=== PATIENT | female | born 1945 | race Caucasian/White ===

== ENCOUNTER 2016-07-09 12:28 | Outpatient (CLI) ==
[2013-02-26 10:03] VITALS: BMI 30.9
--- NOTE | 2016-07-09 13:02 | DI ---
EXAM: CHEST FRONTAL AND LATERAL VIEWS HISTORY: Cough. COMPARISON: 03/22/2009 FINDINGS: Heart size and mediastinal contour remain within normal limits. A mild aortic ectasia. No acute infiltrates are seen. There is no consolidation, visible pleural fluid or pneumothorax. Ramiro eryn reveal no acute fracture. IMPRESSION: No acute cardiopulmonary process.
== END 2016-07-09 12:29 | disposition home or self-care (01) ==
LOC: RAD 12:28
PROVIDERS: ATTEND Internal Medicine
DX: R05 Cough (principal); R50.9 Fever, unspecified

== ENCOUNTER 2017-08-30 11:00 | Outpatient (RCR) ==
[2013-02-26 10:03] VITALS: BMI 30.9
--- NOTE | 2017-08-16 09:55 | RS.OPPTEV2 ---
Date of Note: 08/13/17 Visit #: 1 Date of Evaluation: 08/13/17 Payer Source: MEDICARE Surgery Performed?: Yes (posterior tibial tendon tenosynovectomy and repair) Date of Procedure: 06/04/17 Treatment Diagnosis: R ankle pain, decreased ROM s/p post tibial tendon repair History of Condition/Mechanism of Injury:: pt states she injured R ankle 4 months ago, twisted ankle Prior Level of Function.....Patient was independent with: ADL's, Self Care, Work /Vocation, Ambulation/Mobility, Community Integration/Access Functional Limitations: Standing, Squatting, Ambulation, Community Access/ Integration Current Subjective/complaints:: pt states she is continuing to have significant pain in R ankle. 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 Treatment Side (optional): Right *Precautions: s/p posterior tibial tendon tenosynovectomy and repair 06/04/17 Medical History Medical History: Unremarkable Surgical History: Lumbar Spine Surgical History Comments:: current surgery to R ankle Smoking Status: Former smoker Hx Home Medications: lorazepam, estradiol, zetia Patient's Goals: decrease pain in R ankle and return to normal activities Pain Assessment - Pain Description Pain Location: R ankle Pain Description: Sharp, Aching Current Pain Intensity: 5/10 Functional Outcome Measure LE Functional Scale: 28 (65%) - G Codes & Severity Modifier G Codes & Modifier: mobility current CL. mobility goal CI Source of G Code score: LE functional index Observation - Observation Inspection: non pitting edema R ankle/foot Posture: Forward Head, Rounded Shoulders Handedness: Right Girth Measurement Lower: L LE ankle 25 cm RLE ankle 35cm. forefoot 21 cm forefoot 22 cm Gait - Gait Pattern General Gait Pattern Observation: Antalgic Gait, Decrease Stride Lngth (R) Gait Comments: pt amb with antalgic gait with decrease stance time on R LE, pt also with increased pronation on R foot. General Range of Motion: BUE WFL's. LLE WFL's. RLE except ankle WFL's Ankle ROM: Left WFL's Ankle Muscle Strength: Left WFL's - Left Ankle ROM Left DF with Knee extension: 8 Left Plantar Flexion: 70 Left Eversion: 30 Left Inversion: 28 - Right Ankle ROM Right DF with Knee extension: 5 Right Plantarflexion: 30 Right Eversion: 9 (with pain) Right Inversion: 12 (with pain) - Right Ankle Strength Right Dorsiflexion: 3- Fair- Right Plantarflexion: 3- Fair- Right Eversion: 3- Fair- Right Inversion: 3- Fair- Palpation Palpation Findings: Tenderness (pt with increased tenderness distal to medial malleolus) Sensation - Sensation Right Upper Extremity: Intact/Normal Left Upper Extremity: Intact/Normal Right Lower Extremity: Impaired (slight n/t r foot) Left Lower Extremity: Intact/Normal Balance - Sitting Balance Static Sitting Balance: Normal Dynamic Sitting Balance: Normal - Standing Balance Static Standing Balance: Good Dynamic Standing Balance: Fair - Comments Balance Assessment Comments: pt with antalgic gait, decreased stance time on R causing decreased dyn stand balance - Heat/Cryotherapy Treatment: Cryotherapy Comments:: R ankle Interventions - Exercise/Activities/Manual Therapy Exercises/Activities: pt performed isometric DF, PF , IV, EV. gentle heel cord stretching Manual Therapy: n/a HOME EXERCISE PROGRAM: pt given written HEP including: isometric DF, PF , IV, EV ankle alphabet, towel curls, gentle heel cord stretching - Charges Timed Code Treatment Minutes: 50 Total Treatment Time: 58 Procedures billed for this date of service:: eval low, CP EVALUATION COMPLEXITY LEVEL EVALUATION COMPLEXITY LEVEL: HISTORY: Low (R ankle sx), EXAM OF BODY SYSTEMS: Medium (pain, ROM, Strength, balance, edema), CLINICAL PRESENTATION: Low (stable ), CLINICAL DECISION MAKING: Low Assessment Assessment: pt presents with edema R ankle, decreased ROM, strength, as well as pain R ankle s/p sx on 06/04/17. pt with difficulty with ambulation due to pain and decreased ROM, strength limiting her abilities to perform normal daily activities. 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 Goal #1: pt rate pain <2 with activity Goal to be met by: 09/24/17 Goal #2: Improve R ankle ROM WFL's Goal to be met by: 09/24/17 Goal #3: pt report ability to stand and perform work duties with decrease pain Goal to be met by: 09/24/17 Goal #4: pt independent with HEP and increase strength R ankle 4 to 4+/5 Goal to be met by: 09/24/17 Plan - Treatment to be Provided Procedures: Therapeutic Exercises, Therapeutic Activity, Gait Training, Neuromuscular Rehab, Manual Therapy, Massage, Patient Education Modalities: Electrical Stimulation, Ultrasound/Phonophoresis, Class IV Laser, Cryotherapy, Hot Packs - Treatment Plan Frequency: 2-3x a week Duration: 6 weeks ORDER # VISITS AND/OR THROUGH DATE: 09/24/17 - Treatment Code (1) Right ankle pain Code(s): M25.571 - PAIN IN RIGHT ANKLE AND JOINTS OF RIGHT FOOT Qualifiers: Chronicity: chronic Qualified Code(s): M25.571 - Pain in right ankle and joints of right foot; G89.29 - Other chronic pain; G89.29 - Other chronic pain (2) Joint effusion Code(s): M25.40 - EFFUSION, UNSPECIFIED JOINT (3) Muscle weakness Code(s): M62.81 - MUSCLE WEAKNESS (GENERALIZED) (4) Difficulty walking Code(s): R26.2 - DIFFICULTY IN WALKING, NOT ELSEWHERE CLASSIFIED (5) Other specified postprocedural states Code(s): Z98.89 - OTHER SPECIFIED POSTPROCEDURAL STATES * DO NOT USE * Comments: s/p R posterior tibial tendon tenosynovectomy and repair 06/04/17
--- NOTE | 2017-08-16 16:31 | RS.OPPTDN ---
Subjective Date of Note: 08/16/17 Visit #: 2 Date of Evaluation: 08/13/17 Payer Source: MEDICARE Treatment Diagnosis: R ankle pain, decreased ROM s/p post tibial tendon repair Current Subjective/complaints:: Patient says her ankle seems to be getting better. Reports that she has tenderness to the inside of her ankle along the incision and remains with some swelling. He reports that she is using ice at home and is able to alter her work schedule to the load in which she can tolerate. *Precautions: s/p posterior tibial tendon tenosynovectomy and repair 06/04/17 Pain Assessment - Pain Description Pain Location: 08/10 avg. No pain meds due to side effects. - Heat/Cryotherapy Treatment: Hot Pack (15 mins to the R ankle/foot in supine) Interventions - Exercise/Activities/Manual Therapy Exercises/Activities: Patient receives PROM and gentle stretching of R heel cords and all dir of the R foot. Began manual isometrics all directions also 2x5. Yellow tband IV/EV/PF/DF 2x10. Wobble board for PF/DF at EOB multiple reps. Began patient ed on diagnosis and safety with body mechanics/work duties. Total minutes of Exercise: 23 Manual Therapy: n/a HOME EXERCISE PROGRAM: pt given written HEP including: isometric DF, PF , IV, EV ankle alphabet, towel curls, gentle heel cord stretching - Charges Timed Code Treatment Minutes: 23 Total Treatment Time: 48 Procedures billed for this date of service:: hp, ex2 Assessment: Patient appears to be russell all therex well and is compliant with HEP and is using cryotherapy at home for reducing swelling. Patient motivated to gain ROM and strength to return to work duties more consistently. Patient Education: Home Exercise Program, Home Safety, Education of Plan of Care Patient demonstrates compliance with HEP?: Yes Short Term Goals Goal #1: pt report pain <4 with activity Goal to be met by: 09/03/17 Goal #2: Increased ROM R ankle DF 15, PF 40 IV 20 eversion 15 Goal to be met by: 09/03/17 Goal #3: Decrease edema R ankle to equal to L ankle Goal to be met by: 09/03/17 Goal #4: pt with increased strength R ankle 3+ to 4-/5 Goal to be met by: 09/03/17 Group Home Goals Goal #1: pt rate pain <2 with activity Goal to be met by: 09/24/17 Goal #2: Improve R ankle ROM WFL's Goal to be met by: 09/24/17 Goal #3: pt report ability to stand and perform work duties with decrease pain Goal to be met by: 09/24/17 Goal #4: pt independent with HEP and increase strength R ankle 4 to 4+/5 Goal to be met by: 09/24/17 Plan PLAN OF CARE EXPIRES ON:: 09/24/17 ORDER # VISITS AND/OR THROUGH DATE: 09/24/17 PLAN: Patient to continue TIW
--- NOTE | 2017-08-18 13:47 | RS.OPPTDN ---
Subjective Date of Note: 08/18/17 Visit #: 3 Date of Evaluation: 08/13/17 Payer Source: MEDICARE Treatment Diagnosis: R ankle pain, decreased ROM s/p post tibial tendon repair Current Subjective/complaints:: Patient says her pain and foot are getting better. She says she continues to work on HEP. *Precautions: s/p posterior tibial tendon tenosynovectomy and repair 06/04/17 - Heat/Cryotherapy Treatment: Hot Pack (15 mins around the R foot/ankle in supine) Interventions - Exercise/Activities/Manual Therapy Exercises/Activities: Patient receives PROM and gentle stretching of R heel cords and all dir of the R foot. Continued with manual isometrics all directions also 2x5. Progressed to red tband IV/EV/PF/DF 2x10. Wobble board for PF/DF at EOB multiple reps. Gave yellow and red tbands for HEP. Total minutes of Exercise: 25 Manual Therapy: n/a HOME EXERCISE PROGRAM: pt given written HEP including: isometric DF, PF , IV, EV ankle alphabet, towel curls, gentle heel cord stretching - Charges Timed Code Treatment Minutes: 25 Total Treatment Time: 40 Procedures billed for this date of service:: hp, ex2 Assessment: Patient experiencing less pain and tenderness with mild palpation to the R medial ankle and lower leg. She is able to russell progressive therex today with tbands. Patient instructed on these for home. Patient Education: Home Exercise Program Patient demonstrates compliance with HEP?: Yes Short Term Goals Goal #1: pt report pain <4 with activity Goal to be met by: 09/03/17 Progress towards Goal:: Progressing Goal #2: Increased ROM R ankle DF 15, PF 40 IV 20 eversion 15 Goal to be met by: 09/03/17 Progress towards Goal:: Progressing Goal #3: Decrease edema R ankle to equal to L ankle Goal to be met by: 09/03/17 Progress towards Goal:: Progressing Goal #4: pt with increased strength R ankle 3+ to 4-/5 Goal to be met by: 09/03/17 Custodial Goals Goal #1: pt rate pain <2 with activity Goal to be met by: 09/24/17 Goal #2: Improve R ankle ROM WFL's Goal to be met by: 09/24/17 Goal #3: pt report ability to stand and perform work duties with decrease pain Goal to be met by: 09/24/17 Goal #4: pt independent with HEP and increase strength R ankle 4 to 4+/5 Goal to be met by: 09/24/17 Plan PLAN OF CARE EXPIRES ON:: 09/24/17 ORDER # VISITS AND/OR THROUGH DATE: 09/24/17 PLAN: Continue BIW for progressive therex
--- NOTE | 2017-08-20 15:18 | RS.OPPTDN ---
Subjective Date of Note: 08/20/17 Visit #: 4 Date of Evaluation: 08/13/17 Payer Source: MEDICARE Treatment Diagnosis: R ankle pain, decreased ROM s/p post tibial tendon repair Current Subjective/complaints:: Patient says she "overdid it" at work yesterday. She says she was on her feet longer than she expected and does have increase in swelling as a result. She reports she did use ice when she got home. *Precautions: s/p posterior tibial tendon tenosynovectomy and repair 06/04/17 Pain Assessment - Pain Description Pain Location: R foot medially with elevated swelling - Treatment Modality: Electrical Stim Unattended Parameters/Method Applied: 4 small pads hivolt crossed at the R ankle @ 205-250 pk volts x 20 mins Patient Position: Supine - Heat/Cryotherapy Treatment: Cryotherapy Interventions - Exercise/Activities/Manual Therapy Exercises/Activities: Patient receives PROM and gentle stretching of R heel cords and all dir of the R foot. Continued with manual isometrics all directions also 2x5. Progressed to red tband IV/EV/PF/DF 2x10. Wobble board for PF/DF at EOB multiple reps. Planned to perform standing therex, but with patient's increased pain and prolonged standing yesterday, decided to begin that next week. Total minutes of Exercise: 22 Manual Therapy: n/a HOME EXERCISE PROGRAM: pt given written HEP including: isometric DF, PF , IV, EV ankle alphabet, towel curls, gentle heel cord stretching - Charges Timed Code Treatment Minutes: 22 Total Treatment Time: 42 Procedures billed for this date of service:: cp, estim (un), ex Assessment: Patient demo decreased pain and swelling following modalities today. She remains with difficulty with prolonged standing as in her job duties (7 hours yesterday). 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
--- NOTE | 2017-08-23 12:06 | RS.OPPTDN ---
Subjective Date of Note: 08/23/17 Date of Evaluation: 08/13/17 Payer Source: MEDICARE Treatment Diagnosis: R ankle pain, decreased ROM s/p post tibial tendon repair Current Subjective/complaints:: Patient says last treatment seemed to help improve her pain significantly. Reports foot swelling is better today, but also admits that she has not been up on it long. *Precautions: s/p posterior tibial tendon tenosynovectomy and repair 06/04/17 - Treatment Modality: Electrical Stim Unattended Parameters/Method Applied: cross current hivolt 4 small pads @ 235-275 pk volts x 20 mins surrounding the L foot. Patient Position: Supine - Heat/Cryotherapy Treatment: Cryotherapy Interventions - Exercise/Activities/Manual Therapy Exercises/Activities: Patient receives PROM and gentle stretching of R heel cords and all dir of the R foot. Continued with manual isometrics all directions also 2x5. Progressed to red tband IV/EV/PF/DF 2x10. Wobble board for PF/DF at EOB multiple reps. 2# SAQ 2x10. Sitting: bilateral IV with ball between ankles. Total minutes of Exercise: 20 Manual Therapy: n/a HOME EXERCISE PROGRAM: pt given written HEP including: isometric DF, PF , IV, EV ankle alphabet, towel curls, gentle heel cord stretching - Charges Timed Code Treatment Minutes: 20 Total Treatment Time: 40 Procedures billed for this date of service:: cp, estim (un), ex Assessment: Patient demo decreased swelling today, but also has not had prolonged WBing or standing today. Patient describing less pain and improved stability to the L ankle. Patient Education: Home Exercise Program, Activity Modification, Education of Plan of Care Patient demonstrates compliance with HEP?: Yes Short Term Goals Goal #1: pt report pain <4 with activity Goal to be met by: 09/03/17 Progress towards Goal:: Progressing Goal #2: Increased ROM R ankle DF 15, PF 40 IV 20 eversion 15 Goal to be met by: 09/03/17 Progress towards Goal:: Progressing Goal #3: Decrease edema R ankle to equal to L ankle Goal to be met by: 09/03/17 Progress towards Goal:: Progressing Goal #4: pt with increased strength R ankle 3+ to 4-/5 Goal to be met by: 09/03/17 Progress towards Goal:: 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 Patient to attend follow up tomorrow with MD.
--- NOTE | 2017-08-27 16:22 | RS.OPPTDN ---
Subjective Date of Note: 08/27/17 Visit #: 6 Date of Evaluation: 08/13/17 Payer Source: MEDICARE Treatment Diagnosis: R ankle pain, decreased ROM s/p post tibial tendon repair Current Subjective/complaints:: Patient says she has been up on her feet working today and this weekend. She says as a result, swelling is mildly more. *Precautions: s/p posterior tibial tendon tenosynovectomy and repair 06/04/17 - Treatment Modality: Electrical Stim Unattended Parameters/Method Applied: 4 small pads to the R ankle Hivolt @ 330-350 pk volts x 20 mins after therex Patient Position: Supine - Heat/Cryotherapy Treatment: Cryotherapy Interventions - Exercise/Activities/Manual Therapy Exercises/Activities: Patient receives PROM and stretching of R heel cords and all dir of the R foot. Continued with manual isometrics all directions also 2x10. Progressed to green tband IV/EV/PF/DF 2x10. Wobble board for PF/DF at EOB multiple reps. 2# SAQ 2x10. Sitting: bilateral IV with ball between ankles. No standing therex due to patient working today and yesterday as well as this weekend including prolonged standing, minisquats, and other exercises she utilizes while performing work duties. Total minutes of Exercise: 22 Manual Therapy: n/a HOME EXERCISE PROGRAM: pt given written HEP including: isometric DF, PF , IV, EV ankle alphabet, towel curls, gentle heel cord stretching - Charges Timed Code Treatment Minutes: 22 Total Treatment Time: 42 Procedures billed for this date of service:: cp, estim (un), ex Assessment: Patient does demo reduced swelling at the malleoli compared to the L by 4 cm, which is now only 6 cm instead of 10 cm difference (since eval). Forefoot is ~0.5 cm rather than 1 cm difference. She is able to maintain 2 days in a row working on her feet with swelling reduction, but still moderate pain though during and afterwards. Patient Education: Body/Joint mechanics, Home Exercise Program, Activity Modification, Education of Plan of Care Patient demonstrates compliance with HEP?: Yes Short Term Goals Goal #1: pt report pain <4 with activity Goal to be met by: 09/03/17 Progress towards Goal:: Progressing Goal #2: Increased ROM R ankle DF 15, PF 40 IV 20 eversion 15 Goal to be met by: 09/03/17 Progress towards Goal:: Progressing Goal #3: Decrease edema R ankle to equal to L ankle Goal to be met by: 09/03/17 Progress towards Goal:: Progressing Goal #4: pt with increased strength R ankle 3+ to 4-/5 Goal to be met by: 09/03/17 Progress towards Goal:: Progressing Regional Sales Manager Goals Goal #1: pt rate pain <2 with activity Goal to be met by: 09/24/17 Goal #2: Improve R ankle ROM WFL's Goal to be met by: 09/24/17 Goal #3: pt report ability to stand and perform work duties with decrease pain Goal to be met by: 09/24/17 Goal #4: pt independent with HEP and increase strength R ankle 4 to 4+/5 Goal to be met by: 09/24/17 Plan PLAN OF CARE EXPIRES ON:: 09/24/17 ORDER # VISITS AND/OR THROUGH DATE: 09/24/17 PLAN: Patient to continue BIW x 2 more weeks for strength, ROM, and edema control.
--- NOTE | 2017-08-30 13:25 | RS.OPPTDN ---
Subjective Date of Note: 08/30/17 Visit #: 8 Date of Evaluation: 08/13/17 Payer Source: MEDICARE Treatment Diagnosis: R ankle pain, decreased ROM s/p post tibial tendon repair Current Subjective/complaints:: Patient says she did have some increase in soreness from working over the weekend, but does not have any noticable increase in swelling compared to last week. *Precautions: s/p posterior tibial tendon tenosynovectomy and repair 06/04/17 Pain Assessment - Pain Description Pain Location: "low" - Treatment Modality: Electrical Stim Unattended Parameters/Method Applied: hivolt 4 small pads crossed @ 300-335 pk volts x 20 mins after supine therex Patient Position: Supine - Heat/Cryotherapy Treatment: Cryotherapy Interventions - Exercise/Activities/Manual Therapy Exercises/Activities: Patient receives PROM and stretching of R heel cords and all dir of the R foot. Continued with manual isometrics all directions also 2x10. Progressed to blue tband IV/EV/PF/DF 2x10. Wobble board for PF/DF at EOB multiple reps. 2# SAQ 2x10. Sitting: bilateral IV with ball between ankles. Standing at railing: green foam pad for weight shifting L to R, then A/ P, heel raises x 10. Large square foam for marching x 10 and minisquats x 5. Total minutes of Exercise: 35 Manual Therapy: n/a HOME EXERCISE PROGRAM: pt given written HEP including: isometric DF, PF , IV, EV ankle alphabet, towel curls, gentle heel cord stretching - Charges Timed Code Treatment Minutes: 35 Total Treatment Time: 55 Procedures billed for this date of service:: cp, estim (un), ex2 Assessment: Patient able to russell working full 3 days in a row without significant elevation in swelling. She maintains puffiness to the medial side of the R ankle, but is able to progress with strengthening and bal exercises today. She also presents with steadier gait when compared to first few visits. Patient Education: Body/Joint mechanics, Education of Plan of Care Patient demonstrates compliance with HEP?: Yes Short Term Goals Goal #1: pt report pain <4 with activity Goal to be met by: 09/03/17 Progress towards Goal:: Progressing Goal #2: Increased ROM R ankle DF 15, PF 40 IV 20 eversion 15 Goal to be met by: 09/03/17 Progress towards Goal:: Progressing Goal #3: Decrease edema R ankle to equal to L ankle Goal to be met by: 09/03/17 Progress towards Goal:: Progressing Goal #4: pt with increased strength R ankle 3+ to 4-/5 Goal to be met by: 09/03/17 Progress towards Goal:: Progressing Boats Renter Goals Goal #1: pt rate pain <2 with activity Goal to be met by: 09/24/17 Goal #2: Improve R ankle ROM WFL's Goal to be met by: 09/24/17 Goal #3: pt report ability to stand and perform work duties with decrease pain Goal to be met by: 09/24/17 Goal #4: pt independent with HEP and increase strength R ankle 4 to 4+/5 Goal to be met by: 09/24/17 Plan PLAN OF CARE EXPIRES ON:: 09/24/17 ORDER # VISITS AND/OR THROUGH DATE: 09/24/17 PLAN: Continue for mobility and strengthening to the R ankle progressing gait as well.
== END 2017-08-30 23:59 ==
PROVIDERS: ATTEND Podiatrist
DX: M25.571 Pain in right ankle and joints of right foot (principal); G89.29 Other chronic pain; M25.40 Effusion, unspecified joint; M62.81 Muscle weakness (generalized); R26.2 Difficulty in walking, not elsewhere classified; Z47.89 Encounter for other orthopedic aftercare; Z98.890 Other specified postprocedural states

== ENCOUNTER 2017-09-09 08:00 | Outpatient (RCR) ==
[2013-02-26 10:03] VITALS: BMI 30.9
--- NOTE | 2017-09-01 15:31 | RS.OPPTDN ---
Subjective Date of Note: 09/01/17 Visit #: 9 Date of Evaluation: 08/13/17 Payer Source: MEDICARE Treatment Diagnosis: R ankle pain, decreased ROM s/p post tibial tendon repair Current Subjective/complaints:: Patient says pain and swelling are staying down even while working 3 days per week. She says she does continue to elevate and ice. She reports she just needs to picker and packer her feet in order to walk better. *Precautions: s/p posterior tibial tendon tenosynovectomy and repair 06/04/17 - Treatment Modality: Electrical Stim Unattended Parameters/Method Applied: hivolt 4 small pads @ 380-455 pk volts x 20 mins prior to therex Treatment Area: surrounding the R ankle/incisional region Patient Position: Supine - Heat/Cryotherapy Treatment: Cryotherapy Interventions - Exercise/Activities/Manual Therapy Exercises/Activities: Patient receives PROM and stretching of R heel cords and all dir of the R foot. Continued with manual isometrics all directions also 2x10. Progressed to blue tband IV/EV/PF/DF 2x10. Wobble board for PF/DF at EOB multiple reps. 2# SAQ 2x10. Sitting: bilateral IV with ball between ankles. Standing at railing: green foam pad for weight shifting L to R, then A/ P, heel raises x 10. Large square foam for marching x 10 and minisquats x 5. Instruction on proper heel strike, but also agreed with patient and educated her on exaggerated R hip flexion to clear the R foot and prevent falls while we are also strengthening the Dflexors. Total minutes of Exercise: 34 Manual Therapy: n/a HOME EXERCISE PROGRAM: pt given written HEP including: isometric DF, PF , IV, EV ankle alphabet, towel curls, gentle heel cord stretching - Charges Timed Code Treatment Minutes: 34 Total Treatment Time: 54 Procedures billed for this date of service:: cp, estim (un), ex2 Patient Education: Body/Joint mechanics, Home Safety, Education of Plan of Care Patient demonstrates compliance with HEP?: Yes Short Term Goals Goal #1: pt report pain <4 with activity Goal to be met by: 09/03/17 Progress towards Goal:: Progressing Goal #2: Increased ROM R ankle DF 15, PF 40 IV 20 eversion 15 Goal to be met by: 09/03/17 Progress towards Goal:: Progressing Goal #3: Decrease edema R ankle to equal to L ankle Goal to be met by: 09/03/17 Progress towards Goal:: Progressing Goal #4: pt with increased strength R ankle 3+ to 4-/5 Goal to be met by: 09/03/17 Progress towards Goal:: Progressing Care Home Goals Goal #1: pt rate pain <2 with activity Goal to be met by: 09/24/17 Goal #2: Improve R ankle ROM WFL's Goal to be met by: 09/24/17 Goal #3: pt report ability to stand and perform work duties with decrease pain Goal to be met by: 09/24/17 Goal #4: pt independent with HEP and increase strength R ankle 4 to 4+/5 Goal to be met by: 09/24/17 Plan PLAN OF CARE EXPIRES ON:: 09/24/17 ORDER # VISITS AND/OR THROUGH DATE: 09/24/17 PLAN: Continue progressing therex and modalities to further improve swelling. Reassess next session
--- NOTE | 2017-09-02 11:53 | RS.OPPTDN ---
Subjective Date of Note: 09/02/17 Visit #: 9 Date of Evaluation: 08/13/17 Payer Source: MEDICARE Treatment Diagnosis: R ankle pain, decreased ROM s/p post tibial tendon repair Current Subjective/complaints:: Patient says she has to go into work for a few hours today. She says that she continues to work on standing exercises at home and tries to elevate and use cold at work and home. She admits being more conscientious about her gait and trying to walk more steadily. She admits improved strength and mobility to the R ankle this week. *Precautions: s/p posterior tibial tendon tenosynovectomy and repair 06/04/17 Pain Assessment - Pain Description Pain Location: only slight intermittently - Treatment Modality: Electrical Stim Unattended Parameters/Method Applied: hivolt 4 small pads crossed @ 500 pk volts x 20 mins to the R ankle Patient Position: Supine - Heat/Cryotherapy Treatment: Cryotherapy Interventions - Exercise/Activities/Manual Therapy Exercises/Activities: Patient receives PROM and stretching of R heel cords and all dir of the R foot. Continued with manual isometrics all directions also 2x10. Progressed to blue tband IV/EV/PF/DF 2x10. Wobble board for PF/DF at EOB multiple reps. 2# SAQ 2x10. Sitting: bilateral IV with ball between ankles. Measurements taken. Patient going to work once she leaves therapy and will be on her feet for a few hours so she will be performing various exercises that we would be normally working on. Total minutes of Exercise: 25 Manual Therapy: n/a HOME EXERCISE PROGRAM: pt given written HEP including: isometric DF, PF , IV, EV ankle alphabet, towel curls, gentle heel cord stretching - Charges Timed Code Treatment Minutes: 25 Total Treatment Time: 45 Procedures billed for this date of service:: cp, estim (un), ex2 Assessment: Patient demo improved ROM to: DF--12 degrees, PF--42 degrees, IV 16 degrees, EV-- 13 degrees. Girth measurements: malleoli--27.75 cm Patient Education: Education of diagnosis, Body/Joint mechanics, Home Exercise Program, Education of Plan of Care Patient demonstrates compliance with HEP?: Yes Short Term Goals Goal #1: pt report pain <4 with activity Goal to be met by: 09/03/17 Progress towards Goal:: Progressing Goal #2: Increased ROM R ankle DF 15, PF 40 IV 20 eversion 15 Goal to be met by: 09/03/17 Progress towards Goal:: Partially Met Goal #3: Decrease edema R ankle to equal to L ankle Goal to be met by: 09/03/17 Progress towards Goal:: Progressing Goal #4: pt with increased strength R ankle 3+ to 4-/5 Goal to be met by: 09/03/17 Progress towards Goal:: Met 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
--- NOTE | 2017-09-07 10:46 | RS.OPPTDN ---
Subjective Date of Note: 09/07/17 Visit #: 11 Date of Evaluation: 08/13/17 Payer Source: MEDICARE Treatment Diagnosis: R ankle pain, decreased ROM s/p post tibial tendon repair Current Subjective/complaints:: Patient says the only difficult task she has is ascending/descending stairs. She says swelling and pain is getting better. She says she is stronger and can tell it is getting easier to russell working 3-4 days per week. *Precautions: s/p posterior tibial tendon tenosynovectomy and repair 06/04/17 Pain Assessment - Pain Description Pain Location: tender at the R incisional area and with DF end range stretching Interventions - Exercise/Activities/Manual Therapy Exercises/Activities: Patient receives PROM and stretching of R heel cords and all dir of the R foot. Continued with manual isometrics all directions also 2x10. Progressed to blue tband IV/EV/PF/DF 2x10. Wobble board for PF/DF at EOB multiple reps. Increased to 3# SAQ, QS, SLR 1 05/04# 2x10. Sitting: bilateral IV with ball between ankles. Standing on foam: heel raises, minisquats x 10 without needing to hold on to railing. Forward step ups on board and side step ups x 10 reps with cues for sequencing multiple times. Deep step ups while using handles for forward step x 5. Total minutes of Exercise: 35 Manual Therapy: n/a HOME EXERCISE PROGRAM: pt given written HEP including: isometric DF, PF , IV, EV ankle alphabet, towel curls, gentle heel cord stretching - Charges Timed Code Treatment Minutes: 35 Total Treatment Time: 35 Procedures billed for this date of service:: ex2 Assessment: Patient demo decreased puffiness to the medial aspect of the R ankle along incision. She russell improved stretching today and resistance with manual isometrics. Patient Education: Body/Joint mechanics, Home Exercise Program, Education of Plan of Care Patient demonstrates compliance with HEP?: Yes Short Term Goals Goal #1: pt report pain <4 with activity Goal to be met by: 09/03/17 Progress towards Goal:: Progressing Goal #2: Increased ROM R ankle DF 15, PF 40 IV 20 eversion 15 Goal to be met by: 09/03/17 Progress towards Goal:: Partially Met Goal #3: Decrease edema R ankle to equal to L ankle Goal to be met by: 09/03/17 Progress towards Goal:: Progressing Goal #4: pt with increased strength R ankle 3+ to 4-/5 Goal to be met by: 09/03/17 Progress towards Goal:: Met 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
--- NOTE | 2017-09-07 13:41 | RS.PTSUM ---
Progress Note/Summary Date of Note: 09/07/17 Date of Evaluation: 08/13/17 Number of Visits: 10 Reporting Period for this Progress Note: 08/13/17-09/07/17 Current Complaints/Gains: pt reports that her pain/swelling are better. She is now working 3-4 days per week. pt states she does continue to have difficulty ascending/descending stairs. Objective Measurements/Presentation: pt with significant improvement with LE functional scale improved from 28/80 upon eval to 64/80 currently. R ankle ROM DF 12 PF 42, inversion 16, eversion, 13 which is improved from eval status DF 5 , PF 30 inversion 9 and eversion 12. Strength R LE ankle 4+/5 which is improved from 3-/5 upon eval. G Codes: mobility current CJ. mobility goal CI Source of G Code Score: LE functional scale - Short Term Goals Goal #1: pt report pain <4 with activity Goal to be met by: 09/03/17 Progress towards Goal:: Met Goal #2: Increased ROM R ankle DF 15, PF 40 IV 20 eversion 15 Goal to be met by: 09/03/17 Progress towards Goal:: Partially Met Goal #3: Decrease edema R ankle to equal to L ankle Goal to be met by: 09/03/17 Progress towards Goal:: Progressing Goal #4: pt with increased strength R ankle 3+ to 4-/5 Goal to be met by: 09/03/17 Progress towards Goal:: Met - [facility] Goals Goal #1: pt rate pain <2 with activity Goal to be met by: 09/24/17 Progress towards goal: Met Goal #2: Improve R ankle ROM WFL's Goal to be met by: 09/24/17 Progress towards goal: Progressing Goal #3: pt report ability to stand and perform work duties with decrease pain Goal to be met by: 09/24/17 Progress towards goal: Progressing Goal #4: pt independent with HEP and increase strength R ankle 4 to 4+/5 Goal to be met by: 09/24/17 Progress towards goal: Progressing - Assessment Assessment of Improvement/Progress: pt has made significant improvements with ROM, pain, gait, as well as strength. pt has met STG 1, 4 and LTG 1. pt is progressing well toward remaining goal. Anticipate dc after next visit. Summary: Patient has made progress towards goals., Patient demonstrates potential to gain increased function with therapy - Plan Plan: Continue Plan of Care Frequency: 2 X week Duration: 1 week PLAN OF CARE EXPIRES ON:: 09/24/17 ORDER # VISITS AND/OR THROUGH DATE: 09/24/17
--- NOTE | 2017-09-09 09:19 | RS.OPPTDN ---
Subjective Date of Note: 09/09/17 Visit #: 12 Date of Evaluation: 08/13/17 Payer Source: MEDICARE Treatment Diagnosis: R ankle pain, decreased ROM s/p post tibial tendon repair Current Subjective/complaints:: Patient says she still has days that she has no pain and swelling is down, but also other days it is flared up. Reports that prolonged standing and walking remain to be her most difficult task. She says she plans to walk near her [place] which [place] to gain endurance and strength. 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 *Precautions: s/p posterior tibial tendon tenosynovectomy and repair 06/04/17 Interventions - Exercise/Activities/Manual Therapy Exercises/Activities: Patient receives PROM and stretching of R heel cords and all dir of the R foot. Continued with manual isometrics all directions also 2x10. Progressed to blue tband IV/EV/PF/DF 2x15. Wobble board for PF/DF at EOB multiple reps. Increased to 3# SAQ, QS, SLR 1 1/2# 2x15. Supine: bilateral IV with ball between ankles. Standing on foam: heel raises, minisquats x 10 without needing to hold on to railing. Forward step ups on board and side step ups x 10 reps with cues for sequencing multiple times. Deep step ups while using handles for forward step 2 x 5. Total minutes of Exercise: 33 Manual Therapy: n/a HOME EXERCISE PROGRAM: pt given written HEP including: isometric DF, PF , IV, EV ankle alphabet, towel curls, gentle heel cord stretching - Charges Timed Code Treatment Minutes: 33 Total Treatment Time: 33 Procedures billed for this date of service:: ex2 Assessment: Patient demo consistent improvement with girth measurements in which surrounding the malleoli, swelling has decreased another 1.75 cm since her 10th visit, thus increasing ROM to meeting the STG mobility. Patient has completed POC at this point and will continue HEP progressing it independently and will begin walking routine outside of her home. Patient Education: Body/Joint mechanics, Home Exercise Program, Home Safety, Education of Plan of Care Patient demonstrates compliance with HEP?: Yes Short Term Goals Goal #1: pt report pain <4 with activity Goal to be met by: 09/03/17 Progress towards Goal:: Met Goal #2: Increased ROM R ankle DF 15, PF 40 IV 20 eversion 15 Goal to be met by: 09/03/17 Progress towards Goal:: Met Goal #3: Decrease edema R ankle to equal to L ankle Goal to be met by: 09/03/17 Progress towards Goal:: Partially Met Goal #4: pt with increased strength R ankle 3+ to 4-/5 Goal to be met by: 09/03/17 Progress towards Goal:: Met 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 D/c
--- NOTE | 2017-09-22 11:46 | RS.OPPTDC ---
Date of Discharge: 09/09/17 Date of Evaluation: 08/13/17 Number of Visits: 12 Treatment Diagnosis: R ankle pain, decreased ROM s/p post tibial tendon repair Current Level of Function: Strength RLE improved from 3-/5 on eval to 4+/5. pt amb with no LOB. pt able to stand longer to work 3-4 days per week. pt has partially met or met 6 of 8 goals and progressed with all others. Current Complaints/Gains: pt reports less pain to R ankle and improved strength. pt states it does not bother her much at work when working 3-4 days a week and is continuing to use ice and do HEP. Pain Assessment - Pain Description Pain Location: R ankle Current Pain Intensity: <2/10 Functional Outcome Measure LE Functional Scale: 64 - G Codes & Severity Modifier G Codes & Modifier: mobility dc CJ. mobility goal CI Source of G Code score: LE functional scale Observation - Observation Posture: Forward Head, Rounded Shoulders Gait - Gait Pattern General Gait Pattern Observation: Antalgic Gait Gait Comments: pt amb with antalgic gait, decreased step length. General Range of Motion: BUE WFL's. LLE WFL's. R ankle ROM improved. Muscle Strength: BUE 5/5. LLE 5/5. RLE 4+/5 Interventions - Exercise/Activities/Manual Therapy Exercises/Activities: n/a Manual Therapy: n/a HOME EXERCISE PROGRAM: pt given written HEP including: isometric DF, PF , IV, EV ankle alphabet, towel curls, gentle heel cord stretching - Charges Timed Code Treatment Minutes: n/a Total Treatment Time: n/a Procedures billed for this date of service:: n/a Assessment Assessment: pt progressed with strength, ROM and gait. Significant improvement and partially met/met 6 out of 8 goals progressing toward remaining goals. 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
== END 2017-09-30 23:59 ==
PROVIDERS: ATTEND Podiatrist
DX: Z47.89 Encounter for other orthopedic aftercare (principal); M25.571 Pain in right ankle and joints of right foot; G89.29 Other chronic pain; M25.40 Effusion, unspecified joint; M62.81 Muscle weakness (generalized); R26.2 Difficulty in walking, not elsewhere classified; Z98.890 Other specified postprocedural states

== ENCOUNTER 2018-02-14 08:17 | Outpatient (CLI) ==
[2013-02-26 10:03] VITALS: BMI 30.9
--- NOTE | 2018-02-14 09:08 | US ---
EXAM: Ultrasound Aorta HISTORY: Abdominal pain, family history of aneurysm COMPARISON: 07/09/2015 TECHNIQUE: Ultrasound aorta was performed with Duplex imaging using color, cleestin-scale, and Doppler i maging. FINDINGS: Atherosclerosis in the aorta. Peak systolic velocity in the aorta is approximately 40 cm/sec Measurements are AP by transverse. Proximal aorta: 2.4 x 2.2 cm Mid aorta: 1.8 x 1.6 cm Distal aorta: 1.5 x 1.4 cm Right iliac: 0.9 x 1.1 cm Left iliac: 0.9 x 1.2 cm IMPRESSION: No abdominal aortic aneurysm.
== END 2018-02-14 08:18 | disposition home or self-care (01) ==
LOC: RAD 08:17
PROVIDERS: ATTEND Internal Medicine
DX: R10.9 Unspecified abdominal pain (principal); Z82.49 Family history of ischemic heart disease and other diseases of the circulatory system
CPT/HCPCS: 76775

== ENCOUNTER 2018-08-31 14:46 | Outpatient (CLI) ==
[2013-02-26 10:03] VITALS: BMI 30.9
--- NOTE | 2018-08-31 15:25 | US ---
EXAM: Right lower extremity venous Doppler History: Right lower extremity pain. Technique: Multiple sonographic images through the right lower extremity were obtained. Color duple x Doppler was used to interrogate vascular flow. Findings: The right common femoral, greater saphenous, profunda, superficial femoral, popliteal, per izaguirre, posterior tibial and anterior tibial veins. 6.8 cm x 1.1 cm x 3.2 cm Christian's cyst. Impression: 1. No sonographic evidence for deep venous thrombosis. 2. Right Christian's cyst
--- NOTE | 2018-08-31 15:38 | DI ---
Exam: Right knee two-view. HISTORY: Pain. Findings: Anterior and lateral images of the right knee are submitted. These demonstrate no acute f racture or dislocation. There is no osseous erosion or radiodense foreign body. Mild narrowing medi al compartment is noted. There is minimal patellar spurring. No suprapatellar effusion. No focal s oft tissue swelling is seen. Impressions: Mild degenerative findings of the right knee with no acute fracture or dislocation.
== END 2018-08-31 14:47 | disposition home or self-care (01) ==
LOC: RAD 14:46
PROVIDERS: ATTEND Internal Medicine
DX: M79.661 Pain in right lower leg (principal); M25.461 Effusion, right knee